=== PATIENT | female | born 1995 | race Caucasian/White ===

== ENCOUNTER 2018-11-19 17:43 | Emergency (ER) | payer BC ==
[~2018-11-19] VITALS: Ht 160 cm; Wt 62.6 kg
[2018-11-19] MEDS ORDERED: ONDANSETRON ODT 4 MG TAB.RAPDIS ONE (18:27)
[2018-11-19] MEDS ORDERED: DICYCLOMINE HCL LIQ 10 MG/5 ML UDC ONE (18:43)
[2018-11-19] MEDS ORDERED: ONDANSETRON ODT 4 MG TAB.RAPDIS SL ONE (18:45)
[2018-11-19] MEDS ORDERED: DICYCLOMINE HCL LIQ 10 MG/5 ML UDC PO ONE (18:45)
--- NOTE | 2018-11-19 18:45 | NUR ---
PT IS IN ROOM #2B. DR BOWLES EVALUATED THE PT.
--- NOTE | 2018-11-19 19:28 | NUR ---
Patient discharged to home in stable conditon. Written and verbal after care instructions given. Patient verbalizes understanding of instructions. Pt ambulated out of ER with steady gait, no acute signs of distress, VSS, all belongings taken.
[2018-11-19 19:30] VITALS: BP 114/66
== END 2018-11-19 19:31 | disposition home or self-care (01) ==
LOC: ER 17:44
DX: R11.2 Nausea with vomiting, unspecified (principal); R19.7 Diarrhea, unspecified; R10.10 Upper abdominal pain, unspecified; Z88.1 Allergy status to other antibiotic agents
CPT/HCPCS: A4663; Q0162